=== PATIENT | female | born 1975 | race Two or more races ===

== ENCOUNTER 2016-06-14 14:43 | Emergency (ER) | payer SELFPAY ==
--- NOTE | 2016-06-14 15:01 | ER Document Report ---
ED Medical Screen (RME) - General Stated Complaint: MEDICATION REFILL Notes: 41 yo female with hx/o HTN needs HCTZ and Losartan refilled. ran out of meds today. new to area. has appointment with new PCM next week. asymptomatic. Physical Exam - Vital signs Vitals: Temp Pulse Resp BP Pulse Ox 98.4 F 73 16 143/89 H 98 06/14/16 14:58 06/14/16 14:58 06/14/16 14:58 06/14/16 14:58 06/14/16 14:58 Course - Vital Signs Vital signs: Temp Pulse Resp BP Pulse Ox 98.4 F 73 16 143/89 H 98 06/14/16 14:58 06/14/16 14:58 06/14/16 14:58 06/14/16 14:58 06/14/16 14:58
--- NOTE | 2016-06-14 18:41 | ER Document Report ---
ED General - General Mode of Arrival: Ambulatory Information source: Patient TRAVEL OUTSIDE OF THE [place] IN LAST 30 DAYS: No - HPI Patient complains to provider of: Refill of Medications - General Chief Complaint: Medication Refill Stated Complaint: MEDICATION REFILL Notes: Patient is a 41-year-old female presenting to the emergency department due to running out of her blood pressure medications yesterday. Patient states that she has appointment with her new primary care physician tomorrow, but she was unsure if they would prescribe her hypertension medication on the first visit. She recently moved here from [place]. (JULIET CARTER) - Related Data Allergies/Adverse Reactions: carisoprodol [From Soma] Allergy (Verified 06/14/16 15:44) nitrofurantoin [From Macrobid] Allergy (Verified 06/14/16 15:44) tramadol Allergy (Verified 06/14/16 15:44) Home Medications: Current Home Medications Albuterol Sulfate [Ventolin Hfa] 1 - 2 puff IH Q4 PRN 06/14/16 [History] Hydrochlorothiazide 50 mg PO DAILY 06/14/16 [History] Losartan Potassium 50 mg PO DAILY 06/14/16 [History] Past Medical History - General Information source: Patient - Social History Smoking Status: Unknown if Ever Smoked Chew tobacco use (# tins/day): No Frequency of alcohol use: None Drug Abuse: None Family History: Reviewed & Not Pertinent Patient has suicidal ideation: No - Past Medical History Cardiac Medical History: Reports: Hx Hypertension Pulmonary Medical History: Reports: Hx Asthma Renal/ Medical History: Denies: Hx Peritoneal Dialysis Review of Systems - Review of Systems Constitutional: No symptoms reported EENT: No symptoms reported Cardiovascular: No symptoms reported Respiratory: No symptoms reported Gastrointestinal: No symptoms reported Genitourinary: No symptoms reported Female Genitourinary: No symptoms reported Musculoskeletal: No symptoms reported Skin: No symptoms reported Hematologic/Lymphatic: No symptoms reported Neurological/Psychological: No symptoms reported Physical Exam - Vital signs Interpretation: Hypertensive - No meds today - General General appearance: Appears well, Alert - HEENT Head: Normocephalic, Atraumatic Eyes: Normal Pupils: PERRL - Respiratory Respiratory status: No respiratory distress Chest status: Nontender Breath sounds: Normal Chest palpation: Normal - Cardiovascular Rhythm: Regular Heart sounds: Normal auscultation Murmur: No - Abdominal Inspection: Normal Tenderness: Nontender - Back Back: Normal, Nontender - Extremities General upper extremity: Normal inspection, Nontender, Normal color, Normal ROM , Normal temperature General lower extremity: Normal inspection, Nontender, Normal color, Normal ROM , Normal temperature, Normal weight bearing - Neurological Neuro grossly intact: Yes Cognition: Normal Anish Coma Scale Eye Opening: Spontaneous [place] Coma Scale Verbal: Oriented [place] Coma Scale Motor: Obeys Commands [place] Coma Scale Total: 15 Speech: Normal - Psychological Associated symptoms: Normal affect, Normal mood - Skin Skin Temperature: Warm Skin Moisture: Dry Skin Color: Normal Course - Re-evaluation Re-evalutation: 06/14/16 18:56 I personally performed the services described in the documentation, reviewed and edited the documentation which was dictated to my scribe in my presence, and it accurately records my words and actions. Patient recently moved from [place] was out of her blood pressure medication has appointment tomorrow to see her primary care physician has no new complaints today no headache blurred vision double vision or strokelike symptoms chest pain or shortness of breath. Blood pressure here is 143/89 I told her I give her a prescription for blood pressure medication for one day she has a family doctor appointment tomorrow. She is to return for increasing worsening or new symptoms (MAMADOU YAN) - Vital Signs Vital signs: Temp Pulse Resp BP Pulse Ox 98.5 F 76 16 139/86 H 99 06/14/16 19:31 06/14/16 19:31 06/14/16 14:58 06/14/16 19:31 06/14/16 19:31 (JULIET CARTER) (MAMADOU YAN) Discharge - Discharge Clinical Impression: Medication refill Condition: Stable Disposition: HOME, SELF-CARE Additional Instructions: Medication refills You should contact the doctor immediately if things change. Further evaluation is needed if you develop a fever or cough, if the nature of the pain changes, or if you become short of breath. Follow-up with your primary care physician in the a.m. to get her medication refilled return for increasing worsening or new symptoms Scribe Documentation - Scribe Written by Scribe:: Juliet Carter 06/14/2016 2999 acting as scribe for :: Jaron
[2016-06-14 19:35] VITALS: BP 139/86
== END 2016-06-14 19:35 | disposition home or self-care (01) ==
LOC: ER 14:43
DX: Z76.0 Encounter for issue of repeat prescription (principal); I10 Essential (primary) hypertension
CPT/HCPCS: 99281

== ENCOUNTER 2016-09-07 14:30 | Emergency (ER) | payer SELFPAY ==
--- NOTE | 2016-09-07 15:30 | ER Document Report ---
ED Medical Screen (RME) - General Mode of Arrival: Ambulatory Information source: Patient TRAVEL OUTSIDE OF THE [place] IN LAST 30 DAYS: No <NIRMALA SEGAL - Last Filed: 09/07/16 15:30> <ALIE POWERS - Last Filed: 09/07/16 19:45> - General Chief Complaint: Chest Pain Stated Complaint: CHEST PAIN Time Seen by Provider: 09/07/16 15:24 Notes: Patient with hx of HTN presents with complaints of sternal chest pain, states it feels similar to pleurisy or pneumonia. Patient states the pain is exacerbated and spreads with breath or when lying down. Also complains of headache, cough, and fever. Patient has been taking Ibuprofen with some relief. No hx of heart attack, CVA, DVT. (NIRMALA SEGAL) - Related Data Allergies/Adverse Reactions: carisoprodol [From Soma] Allergy (Verified 09/07/16 15:20) nitrofurantoin [From Macrobid] Allergy (Verified 09/07/16 15:20) tramadol Allergy (Verified 09/07/16 15:20) Past Medical History - General Information source: Patient - Social History Cigarette use (# per day): No Chew tobacco use (# tins/day): No Frequency of alcohol use: None Drug Abuse: None Family history: Reviewed & Not Pertinent - Past Medical History Cardiac Medical History: Reports: Hx Hypertension Pulmonary Medical History: Reports: Hx Asthma Renal/ Medical History: Denies: Hx Peritoneal Dialysis <NIRMALA SEGAL - Last Filed: 09/07/16 15:30> Review of Systems - Review of Systems Cardiovascular: See HPI, Chest pain <NIRMALA SEGAL - Last Filed: 09/07/16 15:30> Physical Exam - Respiratory Chest status: Tender - sternal Breath sounds: No: Rales, Rhonchi, Wheezing - Cardiovascular Rhythm: Regular Heart sounds: Normal auscultation <NIRMALA SEGAL - Last Filed: 09/07/16 15:30> Course - Laboratory Result Diagrams: 09/07/16 15:48 09/07/16 15:48 <ALIE POWERS - Last Filed: 09/07/16 19:45> - Vital Signs Vital signs: Temp Pulse Resp BP Pulse Ox 99.0 F 103 H 15 127/76 H 97 09/07/16 14:34 09/07/16 14:34 09/07/16 14:34 09/07/16 14:34 09/07/16 14:34 - Laboratory Laboratory results interpreted by me: 09/07/16 09/07/16 15:48 15:48 Hgb 11.0 L Hct 32.8 L ESR 88 H Potassium 3.0 L* C-Reactive Protein 54.8 H Doctor's Discharge <NIRMALA SEGAL - Last Filed: 09/07/16 15:30> <ALIE POWERS - Last Filed: 09/07/16 19:45> - Discharge Clinical Impression: Pleurisy, Hypokalemia Condition: Stable Referrals: MARIELENA HAMILTON PA-C [Primary Care Provider] - Follow up as needed Scribe Documentation - Scribe Written by Scribe:: montrell Hernandez, 09/07/16, 1542 acting as scribe for :: Avril <NIMRALA SEGAL - Last Filed: 09/07/16 15:30>
[2016-09-07 16:03] LABS: ABSOLUTE EOSINOPHILS # (AUTO) 0.1 10^3/uL (0.0-0.6); ABSOLUTE LYMPHOCYTES (AUTO) 2.3 10^3/uL (0.5-4.7); ABSOLUTE MONOCYTES (AUTO) 0.8 10^3/uL (0.1-1.4); ABSOLUTE NEUT (AUTO) 6.7 10^3/uL (1.7-8.2); BASOPHILS % (AUTO) 0.4 % (0-2); EOSINOPHILS % (AUTO) 1.1 % (0-6); HEMATOCRIT 32.8 % (36.0-47.0); HGB HCT DIFFERENCE 0.2; LYMPHOCYTES % (AUTO) 22.9 % (13-45); MEAN CORPUSCULAR HEMOGLOBIN 27.8 pg (27.0-33.4); MEAN CORPUSCULAR HGB CONC 33.7 g/dL (32.0-36.0); MEAN CORPUSCULAR VOLUME 83 fl (80-97); MONOCYTES % (AUTO) 8.3 % (3-13); RED BLOOD COUNT 3.97 10^6/uL (3.72-5.28); RED CELL DISTRIBUTION WIDTH 13.9 % (11.5-14.0); SEGMENTED NEUTROPHILS % (AUTO) 67.3 % (42-78)
[2016-09-07 16:31] LABS: ALANINE AMINOTRANSFERASE 36 U/L (9-52); ALBUMIN 3.9 g/dL (3.5-5.0); ALKALINE PHOSPHATASE 93 U/L (38-126); ANION GAP 15 (5-19); ASPARTATE AMINO TRANSFERASE 23 U/L (14-36); BILIRUBIN,DIRECT 0.3 mg/dL (0.0-0.4); BILIRUBIN,TOTAL 0.6 mg/dL (0.2-1.3); BLOOD UREA NITROGEN 13 mg/dL (7-20); C-REACTIVE PROTEIN 54.8 mg/L (<10.0); CALCIUM 9.4 mg/dL (8.4-10.2); CARBON DIOXIDE 27 mmol/L (22-30); CHLORIDE 98 mmol/L (98-107); CREATINE KINASE 43 U/L (30-135); CREATININE RESULT 0.62 mg/dL (0.52-1.25); GLUCOSE 101 mg/dL (75-110); SODIUM 139.9 mmol/L (137-145); TOTAL PROTEIN 7.3 g/dL (6.3-8.2)
[2016-09-07 16:42] LABS: ERYTHROCYTE SEDIMENTATION RATE 88 mm/hr (0-20)
[2016-09-07 16:44] LABS: CREATINE KINASE MB < 0.22 ng/mL (<4.55); TROPONIN I < 0.012 ng/mL
--- NOTE | 2016-09-07 19:17 | ER Document Report ---
ED General - General Mode of Arrival: Ambulatory Information source: Patient TRAVEL OUTSIDE OF THE [place] IN LAST 30 DAYS: No - HPI Patient complains to provider of: Substernal chest pain Onset: Other - 1 week ago Associated symptoms: Other - see notes above <CUAUHTEMOC MAGUIRE - Last Filed: 09/07/16 19:31> <PAMELA SOSA - Last Filed: 09/07/16 21:25> - General Chief Complaint: Chest Pain Stated Complaint: CHEST PAIN Time Seen by Provider: 09/07/16 15:24 Notes: 41 year old female with history of hypertension, asthma, and pleurisy (3 years ago; treated with Prednisone) presents to the ED complaining of substernal chest pain that stated 1 week ago. Patient additionally complains of fever, headache, cough, and pain with breathing. Patient has used Motrin to some relief. Patient denies abdominal pain or nausea. Patient has a history of joint swelling for 1 year and has an appointment next week to explore possible arthritis. (CUAUHTEMOC MAGUIRE) - Related Data Allergies/Adverse Reactions: carisoprodol [From Soma] Allergy (Verified 09/07/16 15:20) nitrofurantoin [From Macrobid] Allergy (Verified 09/07/16 15:20) tramadol Allergy (Verified 09/07/16 15:20) Past Medical History - General Information source: Patient - Social History Smoking Status: Unknown if Ever Smoked Cigarette use (# per day): No Chew tobacco use (# tins/day): No Frequency of alcohol use: None Drug Abuse: None Family History: Reviewed & Not Pertinent Patient has suicidal ideation: No Patient has homicidal ideation: No - Past Medical History Cardiac Medical History: Reports: Hx Hypertension Pulmonary Medical History: Reports: Hx Asthma, Other - Pleruisy 2013 Renal/ Medical History: Denies: Hx Peritoneal Dialysis <CUAUHTEMOC MAGUIRE - Last Filed: 09/07/16 19:31> Review of Systems - Review of Systems Constitutional: No symptoms reported, Fever EENT: No symptoms reported Cardiovascular: See HPI, Chest pain - substernal Respiratory: See HPI, Cough, Hurts to breathe, Short of breath Gastrointestinal: No symptoms reported. denies: Abdominal pain, Nausea Genitourinary: No symptoms reported Female Genitourinary: No symptoms reported Musculoskeletal: No symptoms reported Skin: No symptoms reported Hematologic/Lymphatic: No symptoms reported Neurological/Psychological: No symptoms reported -: Yes All other systems reviewed and negative <CUAUHTEMOC MAGUIRE - Last Filed: 09/07/16 19:31> Physical Exam - General General appearance: Alert In distress: None - HEENT Head: Normocephalic, Atraumatic Eyes: Normal Extraocular movements intact: Yes Pupils: PERRL - Respiratory Respiratory status: No respiratory distress Chest status: Tender - left and right chest wall tenderness to palpation Breath sounds: Normal Chest palpation: Tender - left and right chest wall tenderness to palpation - Cardiovascular Rhythm: Regular Heart sounds: Normal auscultation Murmur: No - Abdominal Inspection: Normal Distension: No distension Tenderness: Nontender - Back Back: Normal - Extremities General upper extremity: Normal ROM. No: Normal inspection - see hand exam below General lower extremity: Normal inspection, Normal ROM Hand: Deformity - Right 4th digit., Swelling - swelling to multiple PIP joints of the right and left hand. - Neurological Neuro grossly intact: Yes - Psychological Associated symptoms: Normal affect, Normal mood - Skin Skin Temperature: Warm Skin Moisture: Dry Skin Color: Normal <CUAUHTEMOC MAGUIRE - Last Filed: 09/07/16 19:31> Course - Laboratory Result Diagrams: 09/07/16 15:48 09/07/16 15:48 <CUAUHTEMOC MAGUIRE - Last Filed: 09/07/16 19:31> - Laboratory Result Diagrams: 09/07/16 15:48 09/07/16 15:48 - Diagnostic Test Radiology reviewed: Image reviewed, Reports reviewed - Chest x-ray does not show any significant findings. - EKG Interpretation by Me EKG shows normal: Sinus rhythm, Posey, Intervals, QRS Complexes. abnormal: ST-T Waves - Borderline inferior T abnormalities Rate: Tachycardia - 101 P Waves: LAE When compared to previous EKG there are: Previous EKG unavailable <PAMELA SOSA - Last Filed: 09/07/16 21:25> - Re-evaluation Re-evalutation: 09/07/16 21:23 The patient's potassium was 3.0 she reports she has had problems with hypokalemia in the past and used to be on potassium supplements. She states she does eat a banana every 2-3 days. She has had pleurisy in the past similar to what she is experiencing today. (PAMELA SOSA) - Vital Signs Vital signs: Temp Pulse Resp BP Pulse Ox 99.0 F 103 H 15 127/76 H 97 09/07/16 14:34 09/07/16 14:34 09/07/16 14:34 09/07/16 14:34 09/07/16 14:34 - Laboratory Laboratory results interpreted by me: 09/07/16 09/07/16 15:48 15:48 Hgb 11.0 L Hct 32.8 L ESR 88 H Potassium 3.0 L* C-Reactive Protein 54.8 H Discharge <CUAUHTEMOC MAGUIRE - Last Filed: 09/07/16 19:31> <PAMELA SOSA - Last Filed: 09/07/16 21:25> - Discharge Clinical Impression: Pleurisy, Hypokalemia Condition: Stable Disposition: HOME, SELF-CARE Additional Instructions: Pleurisy: Your chest pain has been diagnosed as pleuritis (pleurisy). This is an inflammation of the surface of the lung tissue. It can be caused by a virus or , occasionally, old scar tissue. It is painful but, for the most part, not a serious problem. This pain is usually made worse by deep breathing, coughing, or sudden movements of the upper body or arms. The treatment is relief of symptoms. It includes rest, antiinflammatory medication, and pain medicine. Resolution of the pain is usually rapid once antiinflammatory medication is started. Warning signs of a more serious problem include: a fever, shortness of breath, pain that radiates to your jaw, shoulders or arms, or coughing up bloody sputum. If any of these symptoms occur, call the physician at once. Hypokalemia: You have an abnormally decreased level of serum potassium. Hypokalemia may cause weakness, fatigue, or heart rhythm abnormalities. Sometimes there are no symptoms at all. Usually, low serum potassium is due to taking diuretics ( water pills). It can also be due to excessive vomiting or diarrhea. If no obvious cause is evident, further evaluation will be necessary. Treatment is usually oral potassium supplements. Take these exactly as prescribed. You may also want to select foods which are naturally high in potassium -- fruits (such as bananas, cantaloupe, grapes, oranges, prunes, tomatoes), fresh vegetables (potatoes, spinach, beans, peas), orange or tomato juice, tomato pasta sauce, milk, fish (halibut, tuna, salmon, joan) A follow-up blood test is usually performed to assure that the potassium is returning to normal. Call the physician if you suffer severe weakness, muscle twitching or cramping, palpitations (pounding or irregular heartbeat), or any other new or alarming symptoms. //////////////////////////////////////////////////////////////////////////////// //////////////////////////////////////////////////////////////////////////////// ///////////// Start the prednisone tomorrow. Take Motrin 600 mg every 8 hours. Take the potassium as prescribed. Follow-up with your primary care provider in the next few days for recheck. RETURN TO THE EMERGENCY ROOM IF ANY NEW OR WORSENING SYMPTOMS. Prescriptions: Potassium Chloride 20 meq PO DAILY #30 tab.er.prt Prednisone [Deltasone 10 mg Tablet] 10 mg PO ASDIR PRN #21 tablet PRN Reason: Referrals: MARIELENA HAMILTON PA-C [Primary Care Provider] - Follow up in 3-5 days Scribe Attestation: 09/07/16 21:23 I personally performed the services described in the documentation, reviewed and edited the documentation which was dictated to the scribe in my presence, and it accurately records my words and actions. (PAMELA SOSA) Scribe Documentation - Scribe Written by Jerry:: Jerry Felder, 09/07/[id number] acting as scribe for :: Carlos <CUAUHTEMOC MAGURIE - Last Filed: 09/07/16:31>
[2016-09-07] MEDS ORDERED: KETOROLAC TROMETHAMINE 60 MG/2 ML SDV IM ONE (19:29)
[2016-09-07] MEDS ORDERED: PREDNISONE 20 MG TABLET PO ONE (19:29)
[2016-09-07] MEDS ORDERED: POTASSIUM CHLORIDE 10 MEQ TABLET.SA PO ONE (19:30)
[2016-09-07 22:06] VITALS: BP 111/76
--- NOTE | 2016-09-08 12:07 | EKG REPORT ---
SEVERITY:- BORDERLINE ECG - SINUS TACHYCARDIA PROBABLE LEFT ATRIAL ABNORMALITY BORDERLINE T ABNORMALITIES, INFERIOR LEADS : Confirmed by: Rodney Lemons 08-Sep-2016 12:06:58
== END 2016-09-07 22:10 | disposition home or self-care (01) ==
LOC: ER 14:30
DX: R09.1 Pleurisy (principal); E87.6 Hypokalemia; R07.9 Chest pain, unspecified; I10 Essential (primary) hypertension; J45.909 Unspecified asthma, uncomplicated; Z88.6 Allergy status to analgesic agent
CPT/HCPCS: 93005; 99285; 36415; 82553; 82550; 84703; 85025; 85652; 86140; 80053; 84484; 71020; 93010; J7512; J1885

== ENCOUNTER 2018-09-19 20:54 | Emergency (ER) | payer SELFPAY ==
[2018-09-20] MEDS ORDERED: CLINDAMYCIN HCL 150 MG CAPSULE PO ONE (01:32)
--- NOTE | 2018-09-20 01:39 | ER Document Report ---
Addendum entered and electronically signed by REGAN LOPEZ PA-C 09/20/18 01:46: Discharge - Discharge Clinical Impression: Dental decay, Dental abscess Condition: Stable Disposition: HOME, SELF-CARE Instructions: Abscess ([facility]), [facility], Clindamycin ([facility]), Toothache ([facility]) Additional Instructions: Home and rest. Ibuprofen 600 800 mg every 8 hours with food for pain. You may also take 652 8000 mg of Tylenol along with the ibuprofen or in between the ibuprofen's. This will add another area of protection and comfort for the pain. It is highly important that she follow-up with a dentist as soon as possible. I know you have informed me that you have a dentist you want to see on Sunday please keep the appointment. If you should have any swelling over the course of 2448 hrs. or you have difficulty breathing or handling her own secretions by swallowing return to ER at once. Prescriptions: Clindamycin HCl 300 mg PO Q6 #40 capsule Fluconazole [Diflucan] 150 mg PO ASDIR #2 tablet Referrals: MARIELENA HAMILTON PA-C [Primary Care Provider] - Follow up as needed Original Note: ED Oral Problem - General Chief Complaint: Toothache Stated Complaint: TOOTHACHE Time Seen by Provider: 09/20/18 01:33 Primary Care Provider: MARIELENA HAMILTON PA-C [Primary Care Provider] - Follow up as needed Mode of Arrival: Ambulatory Information source: Patient Notes: Patient is a 43-year-old female comes emergency room complaining of right upper dental pain. Patient states that this started on this past Sunday and has progressively gotten worse. She attempted to see a dentist but they are out until Sunday. She replied that her pain level is only 1 but she is here primarily because of the swelling she is taken ibuprofen for the pain and it was last taken yesterday. She is afraid that if she waits too much longer she will be in worse trouble so she is here for an antibiotic. She denies any difficulty swallowing at this time. She knows she has a history of bad teeth in the past. She has a history of hypertension she is on medication for she is not diabetic and she works at home. TRAVEL OUTSIDE OF THE [place] IN LAST 30 DAYS: No - HPI Patient complains to provider of: Swelling of face, Swelling of jaw Onset: Yesterday Onset: Gradual Quality of pain: Fullness, Pressure, Sharp, Throbbing Severity: Moderate Pain Level: 3 Swollen jaw/face: Moderate Associated symptoms: Chills, Toothache. denies: Fever Worsened by: Other - Heat and cold Relieved by: Ibuprofen helps Similar symptoms previously: Yes Recently seen / treated by doctor/dentist: No - Related Data Allergies/Adverse Reactions: carisoprodol [From Soma] Allergy (Verified 09/19/18 20:55) nitrofurantoin [From Macrobid] Allergy (Verified 09/19/18 20:55) tramadol Allergy (Verified 09/19/18 20:55) Past Medical History - General Information source: Patient - Social History Smoking Status: Never Smoker Chew tobacco use (# tins/day): No Frequency of alcohol use: None Drug Abuse: None Family History: Reviewed & Not Pertinent Patient has suicidal ideation: No Patient has homicidal ideation: No - Past Medical History Cardiac Medical History: Reports: Hx Hypertension Pulmonary Medical History: Reports: Hx Asthma Renal/ Medical History: Denies: Hx Peritoneal Dialysis Past Surgical History: Reports: Hx Thyroid Surgery Review of Systems - Review of Systems Constitutional: No symptoms reported EENT: See HPI, Dental problem Cardiovascular: No symptoms reported Respiratory: No symptoms reported Gastrointestinal: No symptoms reported Genitourinary: No symptoms reported Female Genitourinary: No symptoms reported Musculoskeletal: No symptoms reported Skin: No symptoms reported Hematologic/Lymphatic: No symptoms reported Neurological/Psychological: No symptoms reported -: Yes All other systems reviewed and negative Physical Exam - Vital signs Vitals: Temp Pulse Resp BP Pulse Ox 98.6 F 80 16 126/77 H 99 09/19/18 21:39 09/19/18 21:39 09/19/18 21:39 09/19/18 21:39 09/19/18 21:39 Interpretation: Normal - Notes Notes: PHYSICAL EXAMINATION: GENERAL: Patient is a well-nourished well-developed 43-year-old female is in no apparent distress on physical exam today however she does appear somewhat uncomfortable and she does have some external visual swelling to the right lower jaw. HEAD: Examination patient's area of concern is her right jaw. Patient has some moderate swelling to the right lower mandibular area but there is some swelling that is associated with the upper mandibular area as well mild puffiness noted on the superior portion with nonfluctuant swelling on the bottom portion. EYES: Pupils equal round and reactive to light, extraocular movements intact, conjunctiva are normal. ENT: examination patient's oral cavity shows extensive dental decay throughout mostly missing teeth already. However the area in question is the right upper b ack molar there is a cavitation in the middle that has moderate necrotic type of decay the enamel is brownish-black and there is pus coming from the gum to the line. There is no fluctuance felt inside the gum cheek area on palpation mild tenderness to palpation of the tooth itself with a slightly increased amount of pus coming from the go to the line with pressure. There is no seen peritonsilla r abscesses patient is handling her secretions well. She is talking without any difficulties. Airway is patent. NECK: Normal range of motion,supple with some mild bilateral anterior cervical lymphadenopathy. LUNGS: Breath sounds clear to auscultation bilaterally and equal. No wheezes rales or rhonchi. HEART: Regular rate and rhythm without murmurs NEUROLOGICAL: Normal speech, normal gait. Normal sensory, motor exams PSYCH: Normal mood, normal affect. SKIN: Warm, Dry, normal turgor, no rashes or lesions noted. Course - Re-evaluation Re-evalutation: 09/20/18 01:39 Patient declines any type of pain medications and I looked her up on the [employer] aware she has no history of drug seeking behavior. She will stick with ibu profen for the pain and discomfort. We will put her on clindamycin 300 mg 4 times a day along with some Diflucan to stop any type of yeast infection. Patient will see her dentist on Sunday. She has been informed to return to ER if the swelling gets worse over the next 24 to 48 hours. Patient does not appear toxic at all. She is awake alert and oriented she is conversive and she has little pain at this time. 09/20/18 01:41 - Vital Signs Vital signs: Temp Pulse Resp BP Pulse Ox 98.6 F 80 16 126/77 H 99 09/19/18 21:39 09/19/18 21:39 09/19/18 21:39 09/19/18 21:39 09/19/18 21:39 Discharge - Discharge Clinical Impression: Dental decay, Dental abscess Condition: Stable Disposition: HOME, SELF-CARE Instructions: Abscess ([facility]), [facility], Clindamycin ([facility]), Toothache ([facility]) Additional Instructions: Home and rest. Ibuprofen 600 800 mg every 8 hours with food for pain. You may also take 652 8000 mg of Tylenol along with the ibuprofen or in between the ibuprofen's. This will add another area of protection and comfort for the pain. It is highly important that she follow-up with a dentist as soon as possible. I know you have informed me that you have a dentist you want to see on Sunday please keep the appointment. If you should have any swelling over the course of 2448 hrs. or you have difficulty breathing or handling her own secretions by swallowing return to ER at once. Prescriptions: Clindamycin HCl 300 mg PO Q6 #40 capsule Fluconazole [Diflucan] 150 mg PO ASDIR #2 tablet Referrals: MARIELENA HAMILTON PA-C [Primary Care Provider] - Follow up as needed
[2018-09-20 02:09] VITALS: BP 129/89
== END 2018-09-20 02:09 | disposition home or self-care (01) ==
LOC: ER 20:54
DX: K04.7 Periapical abscess without sinus (principal); K08.89 Other specified disorders of teeth and supporting structures; K02.9 Dental caries, unspecified; R22.0 Localized swelling, mass and lump, head; R68.84 Jaw pain; I10 Essential (primary) hypertension
CPT/HCPCS: 99282